=== PATIENT | male | born 1990 | race Caucasian/White ===

== ENCOUNTER 2021-07-10 07:11 | Inpatient (IN) | payer MEDICAID ==
[~2021-07-10] VITALS: Ht 167.6 cm; Wt 83.5 kg
[2021-07-10 07:21] VITALS: BP 131/91
[2021-07-10 08:51] LABS: BASOPHILS # (AUTO) 0.1 K/uL (0.00-0.22); BASOPHILS % (AUTO) 0.5 % (0.0-2.0); EOSINOPHILS # (AUTO) 0.1 K/uL (0-0.4); EOSINOPHILS % (AUTO) 0.4 % (0.0-4.0); HEMATOCRIT 43.6 % (36-52); HEMOGLOBIN 14.6 g/dL (12.0-18.0); LYMPHOCYTES # (AUTO) 1.9 K/uL (2.0-11.5); LYMPHOCYTES % (AUTO) 11.5 % (20.5-51.1); MEAN CORPUSCULAR HEMOGLOBIN 30 pg (27-31); MEAN CORPUSCULAR HGB CONC 34 g/dL (33-37); MONOCYTES # (AUTO) 1.2 K/uL (0.8-1.0); MONOCYTES % (AUTO) 7.3 % (1.7-9.3); NEUTROPHILS # (AUTO) 13.3 K/uL (1.8-7.7); NEUTROPHILS % (AUTO) 80.3 % (42.2-75.2); PLATELET COUNT (AUTO) 250 K/uL (140-450); RED BLOOD CELL COUNT(AUTO) 4.85 MIL/uL (4.20-6.10); RED CELL DISTRIBUTION WIDTH 13.2 % (11.6-13.7); WHITE BLOOD COUNT (AUTO) 16.5 K/uL (4.8-10.8)
[2021-07-10] MEDS ORDERED: PIPERACILLIN/TAZOBACTAM 3.375 GM in DEXTROSE 5% 50 ML IV ONE (09:05)
[2021-07-10] MEDS ORDERED: NACL 0.9% 1,000 ML IV ONE (09:05)
[2021-07-10] MEDS ORDERED: PIPERACILLIN/TAZOBACTAM 3.375 GM VIAL IV ONE (09:18)
[2021-07-10 09:31] LABS: ANION GAP 8.7 (8-16); CARBON DIOXIDE 30.6 mmol/L (21-32); CREATININE 0.8 mg/dL (0.6-1.3); POTASSIUM 4.3 mmol/L (3.5-5.1); TOTAL BILIRUBIN 0.7 mg/dL (0.0-1.0)
[2021-07-10] MEDS ORDERED: ONDANSETRON 4 MG/2 ML VIAL IVP ONE (09:35)
[2021-07-10] MEDS ORDERED: MORPHINE SULFATE 4 MG/ML SYR IVP ONE (09:35)
[2021-07-10] MEDS ORDERED: ONDANSETRON 4 MG/2 ML VIAL IVP PRN (10:30)
[2021-07-10] MEDS ORDERED: NACL 0.9% 1,000 ML IV SCH (10:30)
[2021-07-10] MEDS ORDERED: ACETAMINOPHEN 325 MG TAB PO PRN (10:30)
[2021-07-10] MEDS: MORPHINE SULFATE 2 MG/ML SYR IVP PRN ×2 (13:50→19:17)
[2021-07-10] MEDS ORDERED: BUPIVACAINE-MPF/EPI 0.25% 10 ML VIAL INJ ONE (14:48)
[2021-07-10] MEDS ORDERED: fentaNYL citrate 0.05 MG/ML VIAL ONE (15:06)
[2021-07-10] MEDS ORDERED: KETOROLAC 30 MG/ML VIAL ONE (15:07)
[2021-07-10] MEDS ORDERED: SEVOFLURANE 250 ML BTL INH ONE (15:07)
[2021-07-10] MEDS ORDERED: PROPOFOL 200 MG/20 ML VIAL IV ONE (15:07)
[2021-07-10] MEDS ORDERED: LIDOCAINE MPF 2% 100 MG/5 ML VIAL INJ ONE (15:30)
[2021-07-10] MEDS ORDERED: ROCURONIUM 50 MG/5 ML VIAL IV ONE ×2 (15:30)
[2021-07-10] MEDS ORDERED: DEXTROSE 50% 50 ML SYR IVP PRN (16:05)
[2021-07-10] MEDS ORDERED: INSULIN LISPRO SLIDING SCALE 100 UNITS/ML VIAL SUBQ PRN (16:05)
[2021-07-10] MEDS: BLOOD GLUCOSE MONITORING 1 DEV DEV FS SCH ×2 (16:30→20:35)
[2021-07-10] MEDS ORDERED: GLYCOPYRROLATE 0.2 MG/ML VIAL ONE ×6 (16:37)
[2021-07-10] MEDS ORDERED: NEOSTIGMINE 1:1000 10 MG/10 ML VIAL ONE (16:37)
[2021-07-10] MEDS: LACTATED RINGERS 1,000 ML IV SCH (16:45)
[2021-07-10] MEDS ORDERED: HYDROmorphone 1 MG/ML AMP IVP PRN (17:10)
[2021-07-10] MEDS ORDERED: BLOOD GLUCOSE MONITORING 1 DEV DEV FS ONE (17:10)
[2021-07-10 17:40] VITALS: BP 100/65
[2021-07-10] MEDS: PIPERACILLIN/TAZOBACTAM 3.375 GM in DEXTROSE 5% 50 ML IV SCH ×2 (21:00→22:44)
[2021-07-10] MEDS: PIPERACILLIN/TAZOBACTAM 3.375 GM VIAL IV ONE (22:44)
[2021-07-11] MEDS: PIPERACILLIN/TAZOBACTAM 3.375 GM VIAL IV ONE (01:39)
[2021-07-11] MEDS: LACTATED RINGERS 1,000 ML IV SCH (02:38)
[2021-07-11 02:51] VITALS: BP 100/58
[2021-07-11] MEDS ORDERED: PIPERACILLIN/TAZOBACTAM 3.375 GM VIAL IV ONE (06:02)
[2021-07-11] MEDS: PIPERACILLIN/TAZOBACTAM 3.375 GM in DEXTROSE 5% 50 ML IV SCH ×3 (06:30→20:16)
[2021-07-11 07:05] LABS: BASOPHILS % (AUTO) 0.2 % (0.0-2.0); EOSINOPHILS % (AUTO) 0.1 % (0.0-4.0); HEMATOCRIT 40.5 % (36-52); HEMOGLOBIN 13.7 g/dL (12.0-18.0); LYMPHOCYTES # (AUTO) 2.2 K/uL (2.0-11.5); MEAN CORPUSCULAR HEMOGLOBIN 30 pg (27-31); MEAN CORPUSCULAR HGB CONC 34 g/dL (33-37); MEAN CORPUSCULAR VOLUME 89.8 fL (80-94); MONOCYTES # (AUTO) 1.1 K/uL (0.8-1.0); MONOCYTES % (AUTO) 6.5 % (1.7-9.3); NEUTROPHILS # (AUTO) 13.6 K/uL (1.8-7.7); NEUTROPHILS % (AUTO) 80.2 % (42.2-75.2); PLATELET COUNT (AUTO) 222 K/uL (140-450); RED BLOOD CELL COUNT(AUTO) 4.51 MIL/uL (4.20-6.10)
[2021-07-11 07:11] LABS: ANION GAP 11.9 (8-16); CARBON DIOXIDE 24.7 mmol/L (21-32); CREATININE 0.9 mg/dL (0.6-1.3); POTASSIUM 3.6 mmol/L (3.5-5.1)
[2021-07-11 07:16] LABS: PHOSPHORUS 5.2 mg/dL (2.5-4.9)
[2021-07-11] MEDS: BLOOD GLUCOSE MONITORING 1 DEV DEV FS SCH ×4 (07:30→20:36)
[2021-07-11] MEDS ORDERED: POTASSIUM CHL 20 MEQ/D5-1/2NS 1,000 ML IV SCH (07:40)
[2021-07-11 08:00] VITALS: BP_SYST 100; BP_SYST 105; BP_DIAS 65; BP_DIAS 66
[2021-07-11] MEDS: HYDROcodone/APAP 5/325 MG 1 TAB TAB PO PRN ×3 (08:48→21:21)
[2021-07-11] MEDS: MORPHINE SULFATE 2 MG/ML SYR IVP PRN ×2 (12:21→19:05)
[2021-07-11] MEDS ORDERED: INSULIN LISPRO SLIDING SCALE 100 UNITS/ML VIAL SUBQ PRN (13:40)
[2021-07-11] MEDS ORDERED: ZOLPIDEM 5 MG TAB PO PRN (13:40)
[2021-07-11] MEDS ORDERED: ACETAMINOPHEN 325 MG TAB PO PRN (13:40)
[2021-07-11] MEDS ORDERED: DEXTROSE 50% 50 ML SYR IVP PRN (13:40)
[2021-07-11] MEDS ORDERED: DOCUSATE SODIUM 100 MG GELCAP PO PRN (13:40)
[2021-07-11] MEDS ORDERED: ONDANSETRON 4 MG/2 ML VIAL IM/IVP PRN (13:40)
[2021-07-11] MEDS ORDERED: LORazepam 2 MG/ML VIAL IM/IVP PRN (13:40)
[2021-07-11] MEDS: NACL 0.9% 1,000 ML IV SCH (14:26)
[2021-07-11 15:15] LABS: PROTHROMBIN TIME 12.2 secs (10.8-13.4)
[2021-07-11 15:25] LABS: CHOL/HDL RATIO 2.5 (1-4.5); MAGNESIUM 2.1 mg/dL (1.8-2.4); PHOSPHORUS 3.4 mg/dL (2.5-4.9); THYROID STIMULATING HORMONE 0.7 uIU/mL (0.34-3.74)
[2021-07-11 19:48] LABS: APPEARANCE,URINE CLEAR (CLEAR); BILIRUBIN,URINE NEGATIVE (NEGATIVE); BLOOD, URINE TRACE-I (NEGATIVE); LEUKOCYTE ESTERASE ,URINE NEGATIVE (NEGATIVE); NITRITE, URINE NEGATIVE (NEGATIVE); UGLUCOSE NEGATIVE (NEGATIVE)
[2021-07-11 19:51] LABS: COLOR,URINE ORANGE (YELLOW)
[2021-07-11 20:03] LABS: BARBITURATE, URINE NEGATIVE ng/ml (NEG <=200); BENZODIAZEPINE, URINE NEGATIVE ng/mL (NEG <=200); CANNABINOID, URINE NEGATIVE ng/mL (NEG <=50); COCAINE, URINE NEGATIVE ng/mL (NEG <=300); OPIATE, URINE POSITIVE ng/mL (NEG <=2000); PHENCYCLIDINE SCREEN,URINE NEGATIVE ng/mL (NEG <=25)
[2021-07-11 20:05] LABS: RBC,URINE 0-5 /HPF (0-5); WBC,URINE 0-5 /HPF (0-5)
[2021-07-11 21:14] VITALS: BP 109/64
[2021-07-12] MEDS: MORPHINE SULFATE 2 MG/ML SYR IVP PRN (00:53)
[2021-07-12] MEDS: PIPERACILLIN/TAZOBACTAM 3.375 GM in DEXTROSE 5% 50 ML IV SCH ×3 (04:29→20:36)
[2021-07-12 04:55] VITALS: BP 102/66
[2021-07-12] MEDS: NACL 0.9% 1,000 ML IV SCH ×2 (06:20→23:00)
[2021-07-12] MEDS: HYDROcodone/APAP 5/325 MG 1 TAB TAB PO PRN ×4 (06:35→19:10)
[2021-07-12 06:44] LABS: BASOPHILS % (AUTO) 0.3 % (0.0-2.0); EOSINOPHILS # (AUTO) 0.1 K/uL (0-0.4); EOSINOPHILS % (AUTO) 0.8 % (0.0-4.0); HEMATOCRIT 37.8 % (36-52); HEMOGLOBIN 12.7 g/dL (12.0-18.0); LYMPHOCYTES # (AUTO) 1.2 K/uL (2.0-11.5); LYMPHOCYTES % (AUTO) 8.4 % (20.5-51.1); MEAN CORPUSCULAR HEMOGLOBIN 31 pg (27-31); MEAN CORPUSCULAR HGB CONC 34 g/dL (33-37); MEAN CORPUSCULAR VOLUME 90.4 fL (80-94); MONOCYTES % (AUTO) 7.2 % (1.7-9.3); NEUTROPHILS % (AUTO) 83.3 % (42.2-75.2); PLATELET COUNT (AUTO) 213 K/uL (140-450); RED BLOOD CELL COUNT(AUTO) 4.18 MIL/uL (4.20-6.10); RED CELL DISTRIBUTION WIDTH 12.9 % (11.6-13.7); WHITE BLOOD COUNT (AUTO) 14.4 K/uL (4.8-10.8)
[2021-07-12 07:10] LABS: ANION GAP 10.8 (8-16); CARBON DIOXIDE 25.6 mmol/L (21-32); CREATININE 0.8 mg/dL (0.6-1.3); POTASSIUM 3.4 mmol/L (3.5-5.1)
[2021-07-12] MEDS: BLOOD GLUCOSE MONITORING 1 DEV DEV FS SCH ×4 (08:07→20:40)
[2021-07-12] MEDS ORDERED: POTASSIUM CHLORIDE 10 MEQ TABER PO SCH (11:00)
[2021-07-12] MEDS: metFORMIN 500 MG TAB PO SCH (17:00)
[2021-07-12 20:00] VITALS: BP 120/69
[2021-07-13] MEDS: HYDROcodone/APAP 5/325 MG 1 TAB TAB PO PRN ×3 (00:39→11:58)
[2021-07-13 04:00] VITALS: BP 111/72
[2021-07-13] MEDS: PIPERACILLIN/TAZOBACTAM 3.375 GM in DEXTROSE 5% 50 ML IV SCH ×2 (04:00→11:59)
[2021-07-13] MEDS: BLOOD GLUCOSE MONITORING 1 DEV DEV FS SCH ×2 (06:07→12:02)
[2021-07-13] MEDS: metFORMIN 500 MG TAB PO SCH (08:00)
[2021-07-13] MEDS ORDERED: lisinopriL 5 MG TAB PO SCH (09:00)
[2021-07-13] MEDS ORDERED: MAG SULF 2000 MG/WATER PREMIX 50 ML IV PRN (09:30)
[2021-07-13] MEDS ORDERED: POTASSIUM CHLORIDE 10 MEQ TABER PO PRN (09:30)
[2021-07-13] MEDS ORDERED: ACET-9525 PO (10:50)
[2021-07-13] MEDS ORDERED: LISI5TAB24 PO (10:50)
[2021-07-13] MEDS ORDERED: METR-520 PO (10:50)
[2021-07-13] MEDS ORDERED: METF-1243 PO (10:50)
[2021-07-13 11:46] LABS: BASOPHILS % (AUTO) 0.2 % (0.0-2.0); EOSINOPHILS # (AUTO) 0.3 K/uL (0-0.4); EOSINOPHILS % (AUTO) 2.6 % (0.0-4.0); HEMATOCRIT 36.8 % (36-52); HEMOGLOBIN 12.1 g/dL (12.0-18.0); LYMPHOCYTES # (AUTO) 1.1 K/uL (2.0-11.5); MEAN CORPUSCULAR HEMOGLOBIN 30 pg (27-31); MEAN CORPUSCULAR HGB CONC 33 g/dL (33-37); MEAN CORPUSCULAR VOLUME 91.3 fL (80-94); MONOCYTES # (AUTO) 0.9 K/uL (0.8-1.0); MONOCYTES % (AUTO) 7.8 % (1.7-9.3); NEUTROPHILS % (AUTO) 79.4 % (42.2-75.2); PLATELET COUNT (AUTO) 250 K/uL (140-450); RED BLOOD CELL COUNT(AUTO) 4.03 MIL/uL (4.20-6.10); RED CELL DISTRIBUTION WIDTH 12.9 % (11.6-13.7); WHITE BLOOD COUNT (AUTO) 11.3 K/uL (4.8-10.8)
[2021-07-13 12:05] LABS: ANION GAP 12.5 (8-16); CARBON DIOXIDE 26.4 mmol/L (21-32); CREATININE 0.8 mg/dL (0.6-1.3); POTASSIUM 3.9 mmol/L (3.5-5.1)
[2021-07-13 12:13] VITALS: BP 126/75
[2021-07-13] MEDS ORDERED: LEVO750T51 PO (13:10)
[2021-07-13] MEDS ORDERED: ALBUTEROL SULFATE/IPRATROPIU 3 ML SOL IH PRN (13:15)
[2021-07-13] MEDS ORDERED: ALBUTEROL SULFATE/IPRATROPIU 3 ML SOL IH SCH ×2 (18:00→19:00)
== END 2021-07-13 13:45 | disposition home or self-care (01) | DRG 234 ==
LOC: MED 07:11 → MMU 09:24 → MTU 18:59
PROVIDERS: ADMIT Student in an Organized Health Care Education/Training Program; ATTEND Student in an Organized Health Care Education/Training Program
PROC: 0DTJ4ZZ Resection of Appendix, Percutaneous Endoscopic Approach (ICD-10-PCS; principal; 2021-07-10 14:00)
DX: K35.80 Unspecified acute appendicitis (principal); J96.01 Acute respiratory failure with hypoxia; E83.39 Other disorders of phosphorus metabolism; Z20.822 Contact with and (suspected) exposure to COVID-19; E11.9 Type 2 diabetes mellitus without complications; F17.210 Nicotine dependence, cigarettes, uncomplicated; Z60.2 Problems related to living alone; E87.6 Hypokalemia
CPT/HCPCS: 36415; 71275; 80048; 80053; 80305; 81001; 82374; 82948; 83036; 83605; 83690; 83735; 83880; 84100; 84134; 84443; 85025; 85610; 85730; 86886; 86900; 86901; 87040; 88304; 96365; 96375; 99285; J1170; J1815; J1885; J2001; J2270; J2405; J2543; J2704; J2710; J3010; J3490; J7030; J7060; Q9967